=== PATIENT | male | born 1955 | race Caucasian/White ===

== ENCOUNTER 2018-04-13 10:56 | Emergency (ER) | payer BC ==
--- NOTE | 2018-04-13 12:08 | ED ---
Abdominal Pain/Male - HPI Summary HPI Summary: A 62 y/o M presents to ED with c/o undulating R flank pain onset this AM [employer]. The pain radiates to his groin and back. He has felt similar pain prev and the dx was kidney stones, which was 20 years ago. Pt passed the kidney stone at that time. He did not have a BM this AM. Associated sx: vomiting 2x. He rates the pain as 4 out of 10 at bedside, and 10 out of 10 at its worst. PMHx: HTN. He did not take his Losartan today. No previous surgeries. NKDA. - History of Current Complaint Chief Complaint: EDFlankPain Stated Complaint: RIGHT SIDE FLANK PAIN/VOMITING Time Seen by Provider: 04/13/18 12:03 Hx Obtained From: Patient, Family/House Servant - Onset/Duration: Sudden Onset, Lasting Hours, Still Present Timing: Constant Severity Initially: Moderate Severity Currently: Moderate - but goes up to 10 out of 10 at times Pain Intensity: 4 Pain Scale Used: 0-10 Numeric Location: Discrete At: RLQ Radiates: Yes Radiates to: Back, Other - groin Associated Signs And Symptoms: Positive: Vomiting - Allergies/Home Medications Allergies/Adverse Reactions: Allergies Allergy/AdvReac Type Severity Reaction Status Date / Time No Known Allergies Allergy Verified 04/13/18 11:18 Home Medications: Home Medications Losartan Potassium [Cozaar] 50 mg PO DAILY 04/13/18 [History Confirmed 04/13/18] PMH/Surg Hx/FS Hx/Imm Hx Previously Healthy: Yes Endocrine/Hematology History: Denies: Hx Diabetes, Hx Thyroid Disease Cardiovascular History: Denies: Hx Hypertension Respiratory History: Denies: Hx Asthma, Hx Chronic Obstructive Pulmonary Disease (COPD) GI History: Denies: Hx Ulcer Infectious Disease History: No Infectious Disease History: Denies: Hx Clostridium Difficile, Hx Hepatitis, Hx Human Immunodeficiency Virus (HIV), Hx of Known/Suspected MRSA, Hx Shingles, Hx Tuberculosis, Hx Known/ Suspected VRE, Hx Known/Suspected VRSA, History Other Infectious Disease, Traveled Outside the [place] in Last 30 Days - Family History Known Family History: Positive: Hypertension - Social History Occupation: Employed Full-time Lives: With Family Alcohol Use: Rare Hx Substance Use: No Substance Use Type: Reports: None Hx Tobacco Use: No Smoking Status (MU): Never Smoked Tobacco Review of Systems Negative: Cough Positive: Abdominal Pain, Vomiting All Other Systems Reviewed And Are Negative: Yes Physical Exam - Summary Physical Exam Summary: GENERAL: Patient is a well-developed and nourished M who is lying comfortable in the stretcher. Patient is not in any acute respiratory distress. HEAD AND FACE: Normocephalic EYES: PERRLA, EOMI x 2. EARS: Hearing grossly intact. MOUTH: Oropharynx within normal limits. NECK: Supple, trachea is midline, no adenopathy, no JVD, no carotid bruit. CHEST: Symmetric, no tenderness at palpation LUNGS: Clear to auscultation bilaterally. No wheezing or crackles. CVS: Regular rate and rhythm, S1 and S2 present, no murmurs or gallops appreciated. ABDOMEN: Soft, mild RLQ tenderness to palpation. Bowel sounds are normal. No abdominal abnormal pulsations. EXTREMITIES: Full ROM in all major joints, no edema, no cyanosis or clubbing. NEURO: Alert and oriented x 3. No acute neurological deficits. Speech is normal and follows commands. SKIN: Dry and warm Triage Information Reviewed: Yes Vital Signs On Initial Exam: Initial Vitals Temp Pulse Resp BP Pulse Ox 0 F 55 18 171/81 100 04/13/18 11:18 04/13/18 11:18 04/13/18 11:18 04/13/18 11:18 04/13/18 11:18 Vital Signs Reviewed: Yes Diagnostics - Vital Signs Vital Signs Temp Pulse Resp BP Pulse Ox 04/13/18 11:18 0 F 55 18 171/81 100 - Laboratory Result Diagrams: 04/13/18 12:42 04/13/18 12:42 Lab Statement: Any lab studies that have been ordered have been reviewed, and results considered in the medical decision making process. - CT A/P CT Interpretation Completed By: Radiologist Summary of CT Findings: IMPRESSION: 1. In the proximal right ureter there is an 8 mm calcification with mild to moderate ipsilateral right hydronephrosis. 2. Additional chronic and degenerative changes not directly related to the patient's current clinical presentation. ED provider has reviewed this report. Re-Evaluation - Re-Evaluation 1 Re-Evaluation Time: 14:19 Change: Improved Comment: Discussing CT results with pt and . 2 Re-Evaluation Time: 15:00 Change: Unchanged Comment: Discussing possibility of transfer due to lack of uro coverage [place] [facility] [place] and . Abdominal Pain Fem Course/Dx - Course Course Of Treatment: A 62 y/o M with PMHx: kidney stones presents with undulating R flank pain onset this AM. He described pain as similar to his prev episode of kidney stones. Lab work is unremarkable except glucose: 152, and UA results show 1+ protein, 3+ blood, trace ketones, 3+ WBC, 3+ RBC, yeast present. 1+ bacteria, 1+ glucose. A/P CT shows "1. In the proximal right ureter there is an 8 mm calcification with mild to moderate ipsilateral right hydronephrosis. 2. Additional chronic and degenerative changes not directly related to the patient's current clinical presentation." Since there an obstrcuting stone with WBC in Urine, there is concern for an infected stone. There is no Urology coverage for the next 2 days and so patient will be transfered for a higher level of care. [facility] was contacted but was looking for bed so since [facility] has a bed readily available, patient was transferred there. Pt accepted for transfer to [facility] by Dr. Davis, ED physician. - Diagnoses Provider Diagnoses: Kidney stone, Pyuria Discharge - Sign-Out/Discharge Documenting (check all that apply): Patient Departure - TRANS - Discharge Plan Condition: Stable Disposition: TRANS HIGHER LVL OF CARE FAC Referrals: Cuco Hennessy MD [Primary Care Provider] - 3 Days Additional Instructions: Follow up with your primary care physician in 1-3 days. RETURN TO THE EMERGENCY DEPARTMENT FOR CHANGING OR WORSENING SYMPTOMS. - Billing Disposition and Condition Condition: STABLE Disposition: Trans Higher Lvl of Care Fac - Attestation Statements Document Initiated by Richy: Yes Documenting Scribe: Keely Montague Provider For Whom Richy is Documenting (Include Credential): Dr. Lois Wharton MD Scribedie Attestation: Keely Terry scribed for Dr. Lois Wharton MD on 04/13/18 at [id number]. Scribe Documentation Reviewed: Yes Provider Attestation: The documentation as recorded by the Keely chadwick accurately reflects the service I personally performed and the decisions made by , Dr. Lois Wharton MD Status of Scribe Document: Viewed Consult Consult: At 1544: Spoke with Dr. Davis, ED physician at [facility] Accepts patient for transfer.
[2018-04-13] MEDS ORDERED: Ketorolac INJ* 30 MG/ML 1 ML VIAL IV PUSH ONE (12:23)
[2018-04-13] MEDS ORDERED: Ondansetron INJ* 2 MG/ML VIAL IV ONE (12:23)
[2018-04-13] MEDS ORDERED: NS 0.9% 1000 ML* 1,000 ML IV ONE (12:24)
[2018-04-13 12:31] LABS: Urine Appearance Cloudy; Urine Bacteria 1+ (Absent); Urine Bilirubin Negative (Negative); Urine Blood 3+ (Negative); Urine Color Amber; Urine Glucose 1+(50 mg/dL) (Negative); Urine Ketones Trace (Negative); Urine Nitrite Negative (Negative); Urine Protein 1+(30 mg/dL) (Negative); Urine Red Blood Cell 3+(>10/hpf) (Absent); Urine Specific Gravity 1.024 (1.010-1.030); Urine Squamous Epithelial Cell Present (Absent); Urine Urobilinogen Negative (Negative); Urine White Blood Cell 2+(11-20/hpf) (Absent)
[2018-04-13 13:00] LABS: ABS Basophils 0 10^3/ul (0-0.2); ABS Eosinophils 0 10^3/ul (0-0.6); ABS Lymphocytes 0.8 10^3/ul (1.0-4.8); ABS Monocytes 0.2 10^3/ul (0-0.8); ABS Neutrophils 8.4 10^3/ul (1.5-7.7); ABS Nucleated RBC 0 10^3/ul; Eosinophil % 0.1 %; Hematocrit 47 % (42-52); Lymphocyte % 8.8 %; Mean Corpuscular HGB Conc 34 g/dl (31-36); Mean Corpuscular Hemoglobin 32 pg (27-31); Mean Corpuscular Volume 94 fL (80-94); Mean Platelet Volume 9.2 fL (7.4-10.4); Nucleated Red Blood Cells % 0; Platelet Count 178 10^3/ul (150-450); Red Blood Count 4.96 10^6/ul (4.00-5.40); Red Cell Distribution Width 13 % (10.5-15); White Blood Count 9.5 10^3/ul (3.5-10.8)
[2018-04-13 13:13] LABS: Albumin 4.5 g/dL (3.2-5.2); Albumin/Globulin Ratio 1.9 (1-3); BUN/Creatinine Ratio 17.6 (8-20); C Reactive Protein 1.99 mg/L (<8.01); Calcium 9.8 mg/dL (8.6-10.3); EGFR African American 102.8 (>60); Globulin 2.4 g/dL (2-4); Potassium 4.3 mmol/L (3.5-5.0); Total Protein 6.9 g/dL (6.4-8.9)
[2018-04-13] MEDS ORDERED: cefTRIAXone(*) 1 GM in NS 0.9% 50 ML* 50 ML IVPB ONE (15:32)
[2018-04-13] MEDS ORDERED: NS 0.9% 1000 ML* 1,000 ML IV SCH (15:45)
[2018-04-13 17:12] VITALS: BP 158/80
== END 2018-04-13 17:11 | disposition short-term general hospital (02) ==
LOC: ED 10:56
DX: N20.0 Calculus of kidney (principal); N39.0 Urinary tract infection, site not specified; Z87.442 Personal history of urinary calculi
CPT/HCPCS: 36415; 74176; 80053; 81003; 81015; 83036; 83605; 83690; 85025; 86140; 87086; 96360; 96361; 96374; 96375; 99284; J0696; J1885; J2405

== ENCOUNTER 2018-06-27 11:25 | Emergency (ER) | payer BC ==
[2018-06-27 11:38] VITALS: BP 133/78
[2018-06-27] MEDS ORDERED: Tetan/Diph/Pertus SYR(Tdap)* 0.5 ML SYR(BOOSTRIX) use SYR IM ONE (11:45)
[2018-06-27] MEDS ORDERED: Lidocaine 1% INJ* 10 MG/ML 30 ML SDV INJ ONE (12:28)
[2018-06-27] MEDS ORDERED: Lidocaine 1%* 5 ML VIAL INJ ONE (12:40)
--- NOTE | 2018-06-27 13:23 | UC ---
Laceration HPI - HPI Summary HPI Summary: Pt presents with c/o laceration to left inner left mid leg proximal to knee. Pt states he backed into blade attached to machinery in basement today. - History Of Current Complaint Chief Complaint: UCLaceration Stated Complaint: LT LEG CUT Time Seen by Provider: 06/27/18 12:25 Hx Obtained From: Patient Laceration Location: Leg Mechanism Of Injury: Sharp Trauma Onset/Duration: Sudden Onset Severity: Mild Pain Intensity: 1 Aggravating Factors: Position, Movement Related History: Dominant Hand Right - Allergies/Home Medications Allergies/Adverse Reactions: Allergies Allergy/AdvReac Type Severity Reaction Status Date / Time No Known Allergies Allergy Verified 06/27/18 11:38 Home Medications: Home Medications Ibuprofen 400 mg PO 06/27/18 [History] PMH/Surg Hx/FS Hx/Imm Hx Previously Healthy: Yes - Surgical History Surgical History: Yes Surgery Procedure, Year, and Place: ercp of kidney stone - Family History Known Family History: Positive: Hypertension - Social History Occupation: Employed Full-time Lives: With Family Alcohol Use: Rare Substance Use Type: None Smoking Status (MU): Never Smoked Tobacco Have You Smoked in the Last Year: No - Immunization History Hx Tetanus, Diphtheria Vaccination: No Vaccination Up to Date: No Review of Systems All Other Systems Reviewed And Are Negative: Yes Constitutional: Positive: Negative Skin: Positive: Other - laceratin to left inner leg proximal Eyes: Positive: Negative ENT: Positive: Negative Respiratory: Positive: Negative Cardiovascular: Positive: Negative Gastrointestinal: Positive: Negative Genitourinary: Positive: Negative Motor: Positive: Negative Neurovascular: Positive: Negative Musculoskeletal: Positive: Myalgia Neurological: Positive: Negative Psychological: Positive: Negative Is Patient Immunocompromised?: No Physical Exam Triage Information Reviewed: Yes Appearance: Well-Appearing Vital Signs: Initial Vital Signs Temp 98.4 F 06/27/18 11:34 Pulse 66 06/27/18 11:34 Resp 18 06/27/18 11:34 BP 133/78 06/27/18 11:34 Pulse Ox 100 06/27/18 11:34 Vital Signs Reviewed: Yes Eye Exam: Normal ENT Exam: Normal Dental Exam: Normal Neck exam: Normal Respiratory: Positive: No respiratory distress Musculoskeletal Exam: Normal Neurological Exam: Normal Psychological Exam: Normal Skin Exam: Other - laceration to left inner leg proximal to knee Laceration Repair - Laceration Repair 1 Description: Linear Laceration Size After Repair: Length (cm) - 3, Width (mm) - 5, Depth (mm) - 3 Modified For Repair: No Anesthesia Used: 1.0% Lido Irrigation With Pressure Irrigation Device: Yes Closure Material: Sutures - 6 sutures of 4-0 prolene placed Closure Method: Single Layer Suture Of: Skin Suture Type: Prolene - 4-0 Laceration Course/Dx - Differential Dx - Laceration/Wound Differental Diagnoses: Healing Wound, Laceration - Diagnosis Provider Diagnosis: Laceration of left leg Discharge - Sign-Out/Discharge Documenting (check all that apply): Patient Departure All imaging exams completed and their final reports reviewed: No Studies - Discharge Plan Condition: Stable Disposition: HOME Prescriptions: Cephalexin CAP* [Keflex 500 CAP*] 500 mg PO Q12H #14 cap Patient Education Materials: Care For Your Stitches (DC), Laceration (ED) Referrals: Cuco Hennessy MD [Primary Care Provider] - 7 Days Additional Instructions: Please return to clinic or go to you [facility] for suture removal in 7-10 days. Please monitor for any sign symptoms of infection that include but are not limited to: increased redness, fever, chills, red streaking purulent discharge and swelling. If you have a concern for infection please seek care at the closest emergency room as soon as possible. - Billing Disposition and Condition Condition: STABLE Disposition: Home
== END 2018-06-27 13:46 | disposition home or self-care (01) ==
LOC: UCEAST 11:25
DX: S81.812A Laceration without foreign body, left lower leg, initial encounter (principal); W26.8XXA Contact with other sharp object(s), not elsewhere classified, initial encounter; Y92.9 Unspecified place or not applicable
CPT/HCPCS: 12001; 90715; 99212; G0463

== ENCOUNTER 2018-07-04 14:46 | Emergency (ER) | payer BC ==
[2018-07-04 14:52] VITALS: BP 132/69
--- NOTE | 2018-07-04 15:04 | UC ---
HPI Wound/Suture Re-check - HPI Summary HPI Summary: Patient presents to urgent care to have sutures removed from his left leg. Patient had 6 simple interrupted Prolene sutures placed last Saturday, 8 days ago , for a laceration that occurred on his left posterior distal femur. Patient without any pain. No bleeding. Patient states one suture came out because he forgot to cover and it rubbed on his jeans. Patient has not taken any analgesia. No red no drainage. Patient's medications reviewed this visit. Tetanus was updated at date of sutures - History Of Current Complaint Chief Complaint: UCLaceration Stated Complaint: SUTURE REMOVAL Time Seen by Provider: 07/04/18 14:53 Hx Obtained From: Patient, Medical Records Pain Intensity: 0 - Allergies/Home Medications Allergies/Adverse Reactions: Allergies Allergy/AdvReac Type Severity Reaction Status Date / Time No Known Allergies Allergy Verified 07/04/18 14:52 PMH/Surg Hx/FS Hx/Imm Hx Previously Healthy: Yes Cardiovascular History: Hypertension - Surgical History Surgical History: Yes Surgery Procedure, Year, and Place: ercp of kidney stone - Family History Known Family History: Positive: Hypertension, Non-Contributory - Social History Lives: With Family Alcohol Use: Rare Substance Use Type: None Smoking Status (MU): Never Smoked Tobacco Have You Smoked in the Last Year: No - Immunization History Hx Tetanus, Diphtheria Vaccination: No Vaccination Up to Date: No Review of Systems All Other Systems Reviewed And Are Negative: Yes Skin: Positive: Other - laceration - sutured Physical Exam - Summary Physical Exam Summary: Vital Signs Reviewed: Yes A+Ox3, no distress Eyes: Conjunctiva Clear ENT: Hearing grossly normal neck: supple Respiratory: Positive: No respiratory distress, No accessory muscle use Cardiovascular: skin color reflect adequate perfusion Musculoskeletal Exam: MARTINEZ x 4 without difficulty Neurological: Positive: Alert, ambulatory without difficulty Psychological: Positive: Normal Response To Family Skin: Positive: no rash, no ecchymosis, left distal femur, medial aspect pt with c/d/i wound 5 prolene sutures noted- easily removed no erythema, drainage, fluctuance, Triage Information Reviewed: Yes Vital Signs: Initial Vital Signs Temp 97.9 F 07/04/18 14:48 Pulse 57 07/04/18 14:48 Resp 18 07/04/18 14:48 BP 132/69 07/04/18 14:48 Pulse Ox 100 07/04/18 14:48 Course/Dx - Course Course Of Treatment: Pt presents for suture removal wound c/d/i - Diagnosis Provider Diagnosis: Encounter for removal of sutures Discharge - Sign-Out/Discharge Documenting (check all that apply): Patient Departure All imaging exams completed and their final reports reviewed: No Studies - Discharge Plan Condition: Stable Disposition: HOME Patient Education Materials: Stitches Removal (ED) Referrals: Cuco Hennessy MD [Primary Care Provider] - Additional Instructions: - Keep wound clean and dry -okay to cover with thin layer of antibiotic ointment and bandage to prevent rubbing in your pants - monitor for signs of infection - reddness, red streaking, drainage, pain - Contact your doctor or return with questions or concerns - Billing Disposition and Condition Condition: STABLE Disposition: Home
== END 2018-07-04 15:05 | disposition home or self-care (01) ==
LOC: UCEAST 14:46
DX: S81.812D Laceration without foreign body, left lower leg, subsequent encounter (principal); I10 Essential (primary) hypertension; X58.XXXD Exposure to other specified factors, subsequent encounter